=== PATIENT | male | born 1960 | race Caucasian/White ===

== ENCOUNTER → 2016-09-06 | Outpatient (CLI) | payer BC ==
[~2016-09-06] MED LIST: ALPR1TAB2 PO; AMLO5TAB2 PO; HYDR-3730 PO; LEVO175T5 PO; LEVO750T9 PO; OMEP20CA12 PO
--- OUTSIDE RECORDS SUMMARY | 2016-09-06 10:41 | XMS REPORT | Continuity of Care Document ---
Author Author [facility] Organization [facility] Address Unknown Phone Unavailable Allergies Active Description Code Type Severity Reaction Onset Reported/Identified Relationship to Patient Clinical Status Yes No Known Drug Allergies [id number] Drug Allergy Unknown N/ A 02/12/2016 Medications Problems Date Dx Coded Attending Type Code Diagnosis Diagnosed By 12/03/2014 LASHAE HOLM, PARADISE [place] Ot 724.2 12/13/2014 LASHAE HOLM, PARADISE [place] Ot 724.2 02/09/2016 LASHAE HOLM, [place]AD[place] Ot 724.2 LUMBAGO 02/10/2016 LASHAE HOLM, [place] Ot 724.2 LUMBAGO 02/12/2016 TWYLA VILLASENOR MD Ot Z01.818 ENCOUNTER FOR OTHER PREPROCEDURAL EXAMIN 02/12/2016 TWYLA VILLASENOR MD Ot Z86.010 PERSONAL HISTORY OF COLONIC POLYPS 02/13/2016 TWYLA VILLASENOR MD Ot Z01.818 ENCOUNTER FOR OTHER PREPROCEDURAL EXAMIN 02/13/2016 TWYLA VILLASENOR MD Ot Z86.010 PERSONAL HISTORY OF COLONIC POLYPS 02/16/2016 PARADISE BHARDWAJ MD Ot 724.2 LUMBAGO 02/16/2016 TWYLA VILLASENOR MD Ot K57.90 DVRTCLOS OF INTEST, PART UNSP, W/O PERF 02/16/2016 TWYLA VILLASENOR MD Ot Z09 ENCNTR FOR F/U EXAM AFT TRTMT FOR COND O 02/16/2016 TWYLA VILLASENOR MD Ot Z80.0 FAMILY HISTORY OF MALIGNANT NEOPLASM OF 02/16/2016 TWYLA VILLASENOR MD Ot Z86.010 PERSONAL HISTORY OF COLONIC POLYPS 02/17/2016 TWYLA VILLASENOR MD Ot K57.90 DVRTCLOS OF INTEST, PART UNSP, W/O PERF 02/17/2016 TWYLA VILLASENOR MD Ot Z09 ENCNTR FOR F/U EXAM AFT TRTMT FOR COND O 02/17/2016 JACKLYN HOLM, TWYLA Ryan Ot Z80.0 FAMILY HISTORY OF MALIGNANT NEOPLASM OF 02/17/2016 JACKLYN HOLM, TWYLA Ryan Ot Z86.010 PERSONAL HISTORY OF COLONIC POLYPS 08/30/2016 LASHAE HOLM, PARADISE [place] Ot 724.2 LUMBAGO Procedures Results Encounters ACCT No. Visit Date/Time Discharge Status Pt. Type Provider Facility Loc./Unit Complaint [id number] 02/16/2016 07:10:00 2015 09:55:00 DIS Outpatient TWYLA VILLASENOR MD [facility] HISTORY OF POLYPS [id number] 02/12/2016 05:57:00 2015 12:51:00 DIS Outpatient TWYLA VILLASENOR MD [facility] PREOP HISTORY OF POLYPS [id number] 11/27/2014 17:33:00 2014 23:59:59 CLS Outpatient LASHAE HOLM, [place] [facility] RAD LUMBAR PAIN
--- NOTE | 2016-09-06 12:53 | Diagnostic Imaging Report ---
INDICATION: Chronic low back pain. EXAMINATION: Lumbar spine. FINDINGS: AP and lateral views of the lumbar spine show a slight scoliotic curvature, convex to the left. The alignment is normal. There is disc space narrowing at T12-L1, L2-3, L3-4, and L4-5. There are moderate osteophytes forming at T11-12, L2-3, L3-4, and L4-5 as well. There are no compression fractures. IMPRESSION: Degenerative changes of the lower thoracic and mid lumbar spine as noted. No acute abnormality is seen. Dictated by: Dictated on workstation # [id number]
== END ==
LOC: RAD 10:37
PROVIDERS: ATTEND Family Medicine
DX: M54.5 Low back pain (principal)
CPT/HCPCS: 72100

== ENCOUNTER → 2016-09-11 | Outpatient (CLI) | payer BC ==
--- NOTE | 2016-09-11 08:36 | Diagnostic Imaging Report ---
PROCEDURE: MRI lumbar spine. TECHNIQUE: Multiplanar, multisequence MRI of the lumbar spine was performed without contrast. INDICATION: Back pain with radiculopathy. Cyst on tailbone which is causing some pain. There is normal height and alignment of the lumbar vertebral bodies. There is disc space narrowing and bulging of the disc and spondylosis at T12-L1 which is causing minimal foraminal narrowing but no focal nerve root impingement is seen. There is no central canal stenosis. L1-2 level shows no abnormality. At L2-3 there is disc space narrowing and bulging of disc with mild degenerated facets but no focal disc herniation or significant stenosis is seen. At L3-4 there is disc space narrowing and bulging of disc and spondylosis with degenerated facets resulting in mild bilateral lateral recess narrowing. At L4-5 there is disc space narrowing and diffuse bulging of disc and spondylosis with degenerated facets resulting in some bilateral lateral recess narrowing and mild central canal stenosis. L5-S1 shows mild degenerative disc and facet disease. Imaging of the sacrum and coccyx shows no abnormality. Sacroiliac joints appear normal. IMPRESSION: There is diffuse degenerative disc and facet disease present. This is causing some mild stenosis as described. Dictated by: Dictated on workstation # [id number]
== END ==
LOC: RAD 07:34
PROVIDERS: ATTEND Family Medicine
DX: M51.16 Intervertebral disc disorders with radiculopathy, lumbar region (principal); M48.06 Spinal stenosis, lumbar region
CPT/HCPCS: 72148

== ENCOUNTER 2016-10-26 05:35 | Outpatient (CLI) | payer BC ==
[~2016-10-26] VITALS: Ht 190.5 cm; Wt 104.3 kg
[~2016-10-26 05:35] MED LIST changes: -HYDR-3730 PO; -LEVO750T9 PO
[2016-10-28] MEDS ORDERED: HYDR-3730 PO (10:52)
[2016-10-28] MEDS ORDERED: LEVO750T9 PO (10:52)
== END 2016-10-26 14:39 ==
LOC: PREOP 05:35
PROVIDERS: ATTEND Surgery Pediatric Surgery
DX: Z01.818 Encounter for other preprocedural examination (principal); L05.91 Pilonidal cyst without abscess

== ENCOUNTER 2016-10-28 06:27 | Day surgery (SDC) | payer BC ==
[~2016-10-28] VITALS: Ht 190.5 cm; Wt 104.3 kg
[2016-10-28] MEDS ORDERED: ceFAZolin 1,000 MG (ANCEF) VIAL ONE (06:47)
[2016-10-28] MEDS ORDERED: NS (IVPB) 50 ML ONE (06:48)
[2016-10-28] MEDS ORDERED: MIDAZOLAM 2 MG/2 ML (VERSED) VIAL IV ONE (07:15)
[2016-10-28] MEDS ORDERED: FAMOTIDINE 20MG/2ML IV (PEPCID) IV ONE (07:15)
[2016-10-28] MEDS ORDERED: ceFAZolin 1 GM/NS 50 ML IVPB IV ONE ×2 (07:15)
[2016-10-28] MEDS: LACTATED RINGERS 1,000 ML IV PRN ×2 (07:32→10:17)
[2016-10-28 07:56] VITALS: BP 140/95
--- NOTE | 2016-10-28 08:13 | Progress Note-Pre Operative ---
Pre-Operative Progress Note H&P Reviewed The H&P was reviewed, patient examined and no changes noted. Date H&P Reviewed: October 28, 2016 Time H&P Reviewed: 08:00 Pre-Operative Diagnosis: symptomatic pilonidal cyst DENNIS GONZALEZ MD October 28, 2016 8:12 am
[2016-10-28] MEDS ORDERED: ONDANSETRON 4 MG/2 ML (SDV) Z0FRAN IVP PRN ×2 (08:15→11:15)
[2016-10-28] MEDS ORDERED: HYDROcodone/APAP 5 MG/325 MG (LORTAB) TAB PO ONE (08:15)
[2016-10-28] MEDS ORDERED: morphine INJ 10 MG/ML 1ML (SYR OR VIAL) IVP PRN (08:15)
[2016-10-28] MEDS ORDERED: ACETAMINOPHEN 325 MG TABLET/CAPLET (TYLENOL) PO PRN (08:15)
[2016-10-28] MEDS ORDERED: BUP/EPI 0.5% 1:200,000 (SENSORCAINE) 30 ML VIAL ONE (09:18)
[2016-10-28] MEDS ORDERED: LACTATED RINGERS 1,000 ML IV ONE ×2 (09:20→11:03)
[2016-10-28] MEDS ORDERED: LIDOCAINE PF 2% 10 ML (XYLOCAINE) AMP ONE (09:20)
[2016-10-28] MEDS ORDERED: proPOfol 200 MG/20 ML (DIPRIVAN) VIAL IV ONE (09:20)
[2016-10-28] MEDS ORDERED: ONDANSETRON 4 MG/2 ML (SDV) Z0FRAN ONE (09:20)
[2016-10-28] MEDS ORDERED: ROCURONIUM 50 MG/5 ML (ZEMURON) VIAL IV ONE (09:20)
[2016-10-28] MEDS ORDERED: fentaNYL INJECTION 250 MCG/5 ML AMP ONE (09:21)
[2016-10-28] MEDS ORDERED: SEVOFLURANE (ULTANE) 15 ML INHAL SOLN ONE ×6 (09:21→11:03)
[2016-10-28] MEDS ORDERED: MIDAZOLAM 2 MG/2 ML (VERSED) VIAL ONE (09:21)
--- NOTE | 2016-10-28 10:49 | Progress Note-Post Operative ---
Post-Operative Progess Note Surgeon (s)/Plastic Outfitter (s) Surgeon DENNIS GONZALEZ MD Plastic Outfitter: none Pre-Operative Diagnosis symptomatic pilonidal cyst Post-Operative Diagnosis same Procedure & Operative Findings Date of Procedure 10/28/16 Procedure Preformed/Findings pilonidal cystectomy with intermediate flap closure Anesthesia Type GET Estimated Blood Loss Estimated blood loss (mL): minimal Specimens/Packing Specimens Removed pilonidal cyst Packing: none DENNIS GONZALEZ MD October 28, 2016 10:49 am
[2016-10-28] MEDS ORDERED: LEVO750T9 PO (10:52)
[2016-10-28] MEDS ORDERED: HYDR-3730 PO (10:52)
--- NOTE | 2016-10-28 10:54 | Discharge Inst-Surgical ---
D/C Lap Instructions-LISA New, Converted, or Re-Newed RX: RX on Chart Follow Up Appt in 2 weeks Activity as tolerated No driving for 24 hours No driving while on pain medications Incentive Spirometry use every 2 hours while awake Regular Diet Symptoms to Report: Fever over 101 degree F, Nausea/Vomiting Infection Signs and Symptoms to report: Increased redness, Foul odor of wound, Increased drainage Bathing instructions: May shower Operative Area Clean/Dry; Keep incision clean/dry If any problems/questions: Contact your physician or go to Emergency Room DENNIS GONZALEZ MD October 28, 2016 10:53 am
[2016-10-28] MEDS ORDERED: morphine INJ 10 MG/ML 1ML (SYR OR VIAL) ONE (11:08)
[2016-10-28] MEDS: morphine INJ 10 MG/ML 1ML (SYR OR VIAL) IVP PRN ×3 (11:13→11:40)
[2016-10-28] MEDS ORDERED: HYDROmorphone (DILAUDID) 2 MG/ML VIAL IVP PRN (11:15)
--- NOTE | 2016-10-28 11:54 | OPERATIVE REPORT ---
DATE OF SERVICE: 10/28/2016 DATE OF PROCEDURE: 10/28/2016. ATTENDING PRIMARY CARE PHYSICIAN: PREOPERATIVE DIAGNOSIS: Persistent symptomatic pilonidal cyst. POSTOPERATIVE DIAGNOSIS: Persistent symptomatic pilonidal cyst. PROCEDURE: Pilonidal cystectomy with intermediate flap closure, approximately 6 cm in size. SURGEON: Dr. Gonzalez. ANESTHESIA: General endotracheal. ESTIMATED BLOOD LOSS: Minimal. FINDINGS: Chronic pilonidal cyst with no active abscess identified. There were two open sinuses. DISPOSITION: The patient tolerated the procedure well. The patient is a 55-year-old male with pain and drainage in the upper gluteal cleft around the sacral region for years. He reports that in the past several years this has become more symptomatic with episodes of flareups and drainage as well as pain. He reports that both his mother and father also had a pilonidal cysts and had to have them removed. Upon examination, he was found to have two sinus tracts as well as an area of hardness consistent with a chronic pilonidal cyst. DESCRIPTION OF PROCEDURE: The patient was brought to the operating room, laid supine on the table. After adequate IV pain and sedative medications and general endotracheal intubation, the patient was then placed prone and the buttocks spread laterally. The back, buttocks and perineum were then prepped and draped in standard surgical fashion. The sinus tracts were then probed which did lead to just overlying the sacral bone. We then marked off the skin encompassing these sinus tracts which was approximately 6 cm in size. This area was then anesthetized using 0.5% Marcaine with epinephrine. A skin incision encompassing the sinus tracts was then made in an elliptical shape using a 15 blade. We then proceed with a wide excision of the subcutaneous fat following the lacrimal probe as a guide, which ended up just overlying the sacrum. This was then fully excised using electrocautery with visualization of good hemostasis. The specimen was sent to pathology. We then proceeded with flap closure. We proceeded to create subcutaneous flaps bilaterally using electrocautery to cover the sacrum. The subcutaneous flaps were then reapproximated using 2-0 Vicryl interrupted sutures. The tape on the buttocks was then removed and the subcutaneous tissue was then reapproximated using 2-0 Vicryl interrupted sutures. The skin was then closed using interrupted simple 3-0 nylon sutures. The wound was then cleaned and covered with gauze followed by an ABD pad. The patient tolerated the procedure well. We will start IV and oral pain medication as well as a clear liquid diet. Once he is tolerating clears and has good pain control with oral pain medication and is ambulating well, we will discharge him home. He will be instructed to keep the area clean, dry with gauze dressing on a b.i.d. basis as well as p.r.n. We will also proceed with Levaquin 750 mg daily for 2 weeks. He is also instructed to avoid any heavy lifting or exertion for the next two weeks as well. Job ID: [id number] DocumentID: [id number] Dictated Date: 10/28/2016 11:03:05 Professor Of Pathology Date: 10/28/2016 11:54:01 Dictated By: DENNIS GONZALEZ MD
[2016-10-28 12:10] VITALS: BP 126/71
[2016-10-28] MEDS ORDERED: HYDROcodone/APAP 5 MG/325 MG (LORTAB) TAB ONE (12:14)
[2016-10-28 12:40] VITALS: BP 109/67
[2016-10-28 13:09] VITALS: BP 118/89
== END 2016-10-28 13:30 | disposition home or self-care (01) ==
LOC: SDC 06:27
PROVIDERS: ATTEND Surgery Pediatric Surgery
DX: L05.91 Pilonidal cyst without abscess (principal); Z11.2 Encounter for screening for other bacterial diseases; K21.9 Gastro-esophageal reflux disease without esophagitis; I10 Essential (primary) hypertension; E03.9 Hypothyroidism, unspecified; Z79.899 Other long term (current) drug therapy; Z87.891 Personal history of nicotine dependence
CPT/HCPCS: 87081

== ENCOUNTER → 2020-06-25 | Outpatient (CLI) | payer BC, OTHER ==
[~2020-06-25] MED LIST changes: +AMLO-250 PO; -AMLO5TAB2 PO; +HYDR-3730 PO; +LEVO750T9 PO; -OMEP20CA12 PO; +OMEP20CA18 PO
--- NOTE | 2020-06-25 09:43 | Diagnostic Imaging Report ---
PROCEDURE: US Gallbladder. TECHNIQUE: Multiple real-time grayscale images were obtained over the right upper quadrant in various projections. INDICATION: Abdominal pain and bloating Liver parenchyma is homogeneous. Echogenicity appears mildly increased suggesting some fatty infiltration. Portal vein is patent with hepatopetal flow. Gallbladder is clear with no stones or wall thickening. The common duct is not dilated. Pancreas is obscured by bowel gas. IVC is patent. Aorta is obscured by bowel gas. Right kidney measures 12.1 cm in length and appears normal. There is no ascites. IMPRESSION: Mild hepatic steatosis Dictated by: Dictated on workstation # [id number]
== END ==
LOC: RAD 07:45
PROVIDERS: ATTEND Family Medicine
DX: K76.0 Fatty (change of) liver, not elsewhere classified (principal)
CPT/HCPCS: 76705

== ENCOUNTER → 2020-07-03 | Outpatient (CLI) | payer OTHER ==
[~2020-07-03] MED LIST changes: +CATHETER FLUSH 10 ML SYR IV PRN; +HYDR-3817 PO; +LEVO200T62 PO
--- NOTE | 2020-07-03 15:47 | Diagnostic Imaging Report ---
INDICATION: Abdominal pain. EXAMINATION: Hepatobiliary scan with ejection fraction. This study was performed following administration of 5.4 mCi of Choletec. 8 oz. of Ensure was also used to calculate the ejection fraction. COMPARISON: There are no prior nuclear medicine studies available for comparison. The gallbladder ultrasound exam of 06/25/2020 failed to show any sign of cholelithiasis or acute cholecystitis. On this study, there is uptake of the radiotracer by the gallbladder for 30 minutes. This would weigh against the diagnosis of acute cholecystitis. There is also extension of the radiotracer into the small bowel indicating the common bile duct is not obstructed. However, the ejection fraction is only 10.9% (normal greater than 35%). The reason for the diminished ejection fraction is not certain. IMPRESSION: 1. There is no evidence for acute cholecystitis or for an obstruction of the common bile duct. 2. However, the ejection fraction is only 10.9% and below normal limits. Dictated by: Dictated on workstation # [id number]
== END ==
LOC: CARD 13:00
PROVIDERS: ATTEND Surgery
DX: R10.11 Right upper quadrant pain (principal); R11.2 Nausea with vomiting, unspecified
CPT/HCPCS: 78227; A9537

== ENCOUNTER 2020-07-07 05:51 | Outpatient (RCR) | payer OTHER ==
[~2020-07-07] VITALS: Ht 190.5 cm; Wt 86.4 kg
[~2020-07-07 05:51] MED LIST changes: -CATHETER FLUSH 10 ML SYR IV PRN; -HYDR-3817 PO; -LEVO200T62 PO
[2020-07-07] MEDS ORDERED: HYDR-3817 PO (10:58)
[2020-07-07] MEDS ORDERED: LEVO200T62 PO (10:58)
== END 2020-07-07 11:43 | disposition home or self-care (01) ==
LOC: PREOP 05:51
PROVIDERS: ATTEND Surgery
DX: Z01.818 Encounter for other preprocedural examination (principal); K82.8 Other specified diseases of gallbladder

== ENCOUNTER 2020-07-10 12:06 | Day surgery (SDC) | payer OTHER ==
[~2020-07-10] VITALS: Ht 190.5 cm; Wt 86.4 kg
[2020-07-10] VITALS (10 sets, daily range): BP systolic 129–160; BP diastolic 77–91
[~2020-07-10 12:06] MED LIST changes: +HYDR-3817 PO; +LEVO200T62 PO
[2020-07-10] MEDS ORDERED: ceFAZolin 2 GM IV Premixed 50 ML IV ONE (12:15)
[2020-07-10] MEDS ORDERED: LIDOCAINE/EPI 1%-1:100,000 (XYLOCAINE) 50 ML ONE (12:20)
[2020-07-10] MEDS: LACTATED RINGERS 1,000 ML IV PRN ×2 (12:32→15:18)
--- NOTE | 2020-07-10 12:40 | Progress Note-Pre Operative ---
Pre-Operative Progress Note H&P Reviewed The H&P was reviewed, patient examined and no changes noted. Date Seen by Provider: Jul 10, 2020 Time Seen by Provider: 12:00 Date H&P Reviewed: Jul 10, 2020 Time H&P Reviewed: 12:00 Pre-Operative Diagnosis: symptomatic biliary dyskinesia DENNIS GONZALEZ MD Jul 10, 2020 12:40
[2020-07-10] MEDS ORDERED: HYDR-3817 PO (12:42)
--- NOTE | 2020-07-10 12:43 | Discharge Inst-Surgical ---
D/C Lap Instructions-LISA New, Converted, or Re-Newed RX: RX on Chart Follow Up Appt in 2 weeks Activity as tolerated No driving for 24 hours No driving while on pain medications Incentive Spirometry use every 2 hours while awake Regular Diet Symptoms to Report: Fever over 101 degree F, Nausea/Vomiting Infection Signs and Symptoms to report: Increased redness, Foul odor of wound, Increased drainage Bathing instructions: May shower Operative Area Clean/Dry; Keep incision clean/dry If any problems/questions: Contact your physician or go to Emergency Room DENNIS GONZALEZ MD Jul 10, 2020 12:43
[2020-07-10] MEDS ORDERED: morphine INJ 10 MG/ML 1ML (SYR OR VIAL) IVP PRN ×2 (12:45)
[2020-07-10] MEDS ORDERED: ONDANSETRON 4 MG/2 ML (SDV) Z0FRAN IVP PRN ×2 (12:45→16:00)
[2020-07-10] MEDS ORDERED: ACETAMINOPHEN 325 MG TABLET PO PRN (12:45)
[2020-07-10] MEDS ORDERED: fentaNYL INJECTION 100 MCG/2 ML AMP ONE (13:12)
[2020-07-10] MEDS ORDERED: ONDANSETRON 4 MG/2 ML (SDV) Z0FRAN ONE (13:12)
[2020-07-10] MEDS ORDERED: ROCURONIUM 10 MG/ML 5 ML SYRINGE IV ONE (13:12)
[2020-07-10] MEDS ORDERED: SEVOFLURANE (ULTANE) 15 ML INHAL SOLN ONE ×2 (13:12→15:28)
[2020-07-10] MEDS ORDERED: proPOfol 200 MG/20 ML (DIPRIVAN) VIAL IV ONE (13:12)
[2020-07-10] MEDS ORDERED: GLYCOPYRROLATE 0.2 MG/ML (ROBINUL) 2 ML VIAL ONE (13:12)
[2020-07-10] MEDS ORDERED: LIDOCAINE PF 2% 5 ML (XYLOCAINE) VIAL ONE (13:12)
[2020-07-10] MEDS ORDERED: MIDAZOLAM 2 MG/2 ML (VERSED) VIAL ONE (13:12)
[2020-07-10] MEDS ORDERED: NEOSTIGMINE 3 MG/3 ML VIAL ONE (13:12)
--- NOTE | 2020-07-10 15:37 | Progress Note-Post Operative ---
Post-Operative Progess Note Surgeon (s)/Lump Roller (s) Surgeon DENNIS GONZALEZ MD Lump Roller: dolores pham RN LABOR DELIVERY Pre-Operative Diagnosis symptomatic biliary dyskinesia Post-Operative Diagnosis same Procedure & Operative Findings Date of Procedure 07/10/20 Procedure Performed/Findings laparoscopic cholecystectomy Anesthesia Type get Estimated Blood Loss Estimated blood loss (mL): minimal Specimens/Packing Specimens Removed gallbladder DENNIS GONZALEZ MD Jul 10, 2020 15:37
[2020-07-10] MEDS ORDERED: HYDROmorphone 2 MG/ML VIAL (DILAUDID) ONE (15:47)
--- NOTE | 2020-07-10 15:49 | Anesthesia-General Post-Op ---
General Patient Condition Mental Status/LOC: Same as Preop Cardiovascular: Satisfactory Nausea/Vomiting: Absent Respiratory: Satisfactory Pain: Controlled Complications: Absent Post Op Complications Complications None Follow Up Care/Instructions Patient Instructions None needed. Anesthesia/Patient Condition Patient Condition Patient is doing well, no complaints, stable vital signs, no apparent adverse anesthesia problems. No complications reported per nursing. TWAN REYNOLDS CRNA Jul 10, 2020 15:49
[2020-07-10] MEDS ORDERED: PROMETHAZINE INJ 25 MG/ML (PHENERGAN) AMP ONE (15:57)
[2020-07-10] MEDS ORDERED: HYDROmorphone 2 MG/ML VIAL (DILAUDID) IV ONE (16:00)
[2020-07-10] MEDS ORDERED: morphine INJ 10 MG/ML 1ML (SYR OR VIAL) IVP ONE (16:00)
[2020-07-10] MEDS ORDERED: PROMETHAZINE INJ 25 MG/ML (PHENERGAN) AMP IVP ONE (16:15)
[2020-07-10] MEDS: oxyCODONE/APAP 5/325MG (PERCOCET 5) TABLET PO PRN ×2 (16:55→17:36)
--- NOTE | 2020-07-10 20:19 | OPERATIVE REPORT ---
DATE OF SERVICE: 07/10/2020 ATTENDING PRIMARY CARE PHYSICIAN: Dr. Andrei García. PREOPERATIVE DIAGNOSIS: Symptomatic biliary dyskinesia. POSTOPERATIVE DIAGNOSIS: Symptomatic biliary dyskinesia. PROCEDURE: Laparoscopic cholecystectomy. SURGEON: Dennis Gonzalez MD ANESTHESIA: General endotracheal. ESTIMATED BLOOD LOSS: Minimal. FINDINGS: Distended gallbladder, no gallbladder wall thickening. Mild liver steatosis. DISPOSITION: The patient tolerated the procedure well. INDICATIONS: The patient is a 59-year-old male who began diet and exercising some time ago. We had removed a complex pilonidal cyst in 2017 and at that time, he had decided on proceeding with a diet and exercise regimen. He has lost a significant amount of weight; however, he then developed abdominal bloating and nausea as well as right upper abdominal quadrant pain following meals. This caused him to inadvertently lose approximately 10 more pounds. An ultrasound was performed, which did not show any gallstones; however, HIDA scan was performed, which did show a low ejection fraction of 10% with severe reproduction of symptoms upon administration of Kinevac analogue consistent with a biliary dyskinesia. DESCRIPTION OF PROCEDURE: The patient was brought to the operating room, laid supine on the table. After adequate IV pain and sedative medications and general endotracheal intubation, the abdomen was prepped and draped in standard surgical fashion. A 0.5% Marcaine with epinephrine was used to anesthetize overlying skin in the left upper abdominal quadrant and a transverse skin incision made using 15 blade. An 0 silk suture was applied to the medial aspect of incision for retraction and Veress needle inserted with a low opening pressure of 0 mmHg and the abdomen was then insufflated to 15 mmHg pressure. The Veress needle removed and a 5 mm XL trocar placed followed by a 5 mm 45-degree angle laparoscope visualizing the peritoneal cavity. A 4-quadrant abdominal exploration was performed. There was mild to moderate liver steatosis. There was a distended gallbladder, no gallbladder wall thickening. Under direct visualization, we then proceeded to place a supraumbilical 10 mm port after the skin and peritoneal lining were anesthetized using 0.5% Marcaine with epinephrine and a transverse skin incision made using a 15 blade. In a similar fashion, a right upper abdominal quadrant 5 mm port was placed. The patient was then placed in reverse Trendelenburg position as well as plane right side up, left side down and the fundus of the gallbladder was then retracted anteriorly and superiorly. The hepatoduodenal ligament was then opened using blunt dissection as well as electrocautery on the hook instrument. The entire critical view of safety was identified including the triangle of Calot as well as the cystic duct and artery as the only two structures going into the gallbladder as well as the cystic plate behind the proximal gallbladder. A timeout was then taken and the cystic duct and artery were then clipped proximally, distally and cut with EndoShears. The gallbladder was then dissected off the liver bed using cautery on hook instrument with visualization of good hemostasis as well as no leaking ducts of Luschka. The gallbladder was removed through the 10 mm port site using an EndoCatch bag. The 10 mm port site fascia and peritoneum were then closed under direct visualization using a Zach-Chelsea device and 0 Vicryl suture. The abdomen was desufflated and the remaining ports removed. All skin incisions were closed using 4-0 Monocryl running subcuticular sutures. Wounds were then cleaned and covered with Dermabond. The patient tolerated the procedure well. We will start IV normal pain medication as well as a clear liquid diet. Once he is tolerating clears, has good pain control with oral pain medications, ambulating well, we will discharge him home. Job ID: [id number] DocumentID: [id number] Dictated Date: 07/10/2020 15:46:27 Training And Development Project Leader Date: 07/10/2020 20:18:47 Dictated By: DENNIS GONZALEZ MD
== END 2020-07-10 17:56 | disposition home or self-care (01) ==
LOC: SDC 12:06
PROVIDERS: ATTEND Surgery
DX: K81.1 Chronic cholecystitis (principal); K82.8 Other specified diseases of gallbladder; I10 Essential (primary) hypertension; K21.9 Gastro-esophageal reflux disease without esophagitis; E03.9 Hypothyroidism, unspecified; G89.29 Other chronic pain; Z79.899 Other long term (current) drug therapy; Z80.0 Family history of malignant neoplasm of digestive organs; Z80.3 Family history of malignant neoplasm of breast; Z80.42 Family history of malignant neoplasm of prostate
CPT/HCPCS: 87081

== ENCOUNTER 2021-05-26 09:19 | Outpatient (CLI) | payer OTHER ==
[~2021-05-26] VITALS: Ht 190.5 cm; Wt 91.6 kg
== END 2021-05-26 09:55 | disposition home or self-care (01) ==
LOC: PREOP 09:19
PROVIDERS: ATTEND Surgery
DX: Z01.818 Encounter for other preprocedural examination (principal)

== ENCOUNTER 2021-05-27 12:42 | Day surgery (SDC) | payer OTHER ==
[~2021-05-27] VITALS: Ht 190.5 cm; Wt 91.6 kg
[2021-05-27] MEDS ORDERED: NS IV 500 ML 500 ML ONE (12:47)
[2021-05-27 13:00] VITALS: BP 141/99
[2021-05-27] MEDS ORDERED: fentaNYL INJ 100 MCG/2 ML AMP IVP ONE (13:00)
[2021-05-27] MEDS ORDERED: MIDAZOLAM 5 MG/5 ML (VERSED) VIAL IV ONE (13:00)
[2021-05-27] MEDS ORDERED: LIDOCAINE JELLY 2% 6 ML SYRINGE MM PRN (13:00)
[2021-05-27] MEDS ORDERED: NS IV 500 ML 500 ML IV PRN (13:00)
--- NOTE | 2021-05-27 13:18 | Conscious Sedation/ASA ---
Conscious Sedation Pre-Proced Time 13:00 ASA Score 2 �For ASA 3 and 4: Consider anesthesia and medical clearance.� Also, for patients with a history of failed moderate sedation consider anesthesia.� Airway Lungs Heart ASA score ASA 1: a normal healthy patient ASA 2: a patient with a mild systemic disease (mid diabetes, controlled hypertension, obesity ASA 3: a patient with a severe systemic disease that limits activity (angina, COPD, prior Myocardial infarction) ASA 4: a patient with an incapacitating disease that is a constant threat to life (CHF, renal failure) ASA 5: a moribund patient not expected to survive 24 hrs. (ruptured aneurysm) ASA 6: a declared brain- patient whose organs are being harvested. For emergent operations, add the letter E after the classification Mallampati Classification Grade 2 Sedation Plan Analgesia, Amnesia, Plan communicated to team members, Discussed options with patient/fam, Discussed risks with patient/fam The patient is an appropriate candidate to undergo the planned procedure, sedation, and anesthesia. The patient immediately re-assessed prior to indication. DENNIS GONZALEZ MD May 27, 2021 13:18
--- NOTE | 2021-05-27 13:18 | Progress Note-Pre Operative ---
Pre-Operative Progress Note H&P Reviewed The H&P was reviewed, patient examined and no changes noted. Date Seen by Provider: May 27, 2021 Time Seen by Provider: 13:00 Date H&P Reviewed: May 27, 2021 Time H&P Reviewed: 13:00 Pre-Operative Diagnosis: screening DENNIS Flaherty MD May 27, 2021 13:18
--- NOTE | 2021-05-27 13:19 | Discharge Inst-Surgical ---
D/C Lap Instructions-LISA Follow Up Activity as tolerated High Fiber Diet 25g or more per day Avoid Alcohol, Caffeine, Spicy [place] and Acid foods. Drink 64 fluid oz or more of fluids per day. Symptoms to Report: Fever over 101 degree F, Nausea/Vomiting If any problems/questions: Contact your physician or go to Emergency Room DENNIS GONZALEZ MD May 27, 2021 13:19
[2021-05-27] MEDS ORDERED: ONDANSETRON 4 MG/2 ML (SDV) Z0FRAN IVP PRN (13:30)
[2021-05-27] MEDS ORDERED: ONDANSETRON 4 MG (ZOFRAN) ORAL DISSOLVE TAB PO PRN (13:30)
[2021-05-27 14:43] VITALS: BP 131/80
[2021-05-27 14:48] VITALS: BP 112/71
[2021-05-27 14:51] VITALS: BP 120/76
[2021-05-27 14:56] VITALS: BP 117/75
--- NOTE | 2021-05-27 15:00 | Progress Note-Post Operative ---
Post-Operative Progess Note Surgeon (s)/Manager Transport (s) Surgeon DENNIS GONZLAEZ MD Manager Transport: none Pre-Operative Diagnosis screening colo Post-Operative Diagnosis mild chronic stage 2 ext and int hemorrhoids, mild-mod sigmoid diverticulosis. Procedure & Operative Findings Date of Procedure 05/27/21 Procedure Performed/Findings colonoscopy Anesthesia Type cs Estimated Blood Loss Estimated blood loss (mL): minimal Specimens/Packing Specimens Removed none DENNIS GONZALEZ MD May 27, 2021 14:59
[2021-05-27 15:34] VITALS: BP 132/98
--- NOTE | 2021-05-28 01:30 | OPERATIVE REPORT ---
DATE OF SERVICE: 05/27/2021 ATTENDING PRIMARY CARE PHYSICIAN: Andrei García MD PREOPERATIVE DIAGNOSIS: Screening colonoscopy with a history of colon polyps. POSTOPERATIVE DIAGNOSES: Chronic stage II external and internal hemorrhoids, mild to moderate sigmoid diverticulosis. PROCEDURE: Colonoscopy. SURGEON: Dennis Gonzalez MD ANESTHESIA: Conscious sedation. ESTIMATED BLOOD LOSS: Minimal. FINDINGS: Chronic stage II external and internal hemorrhoids, mild to moderate sigmoid diverticulosis. DISPOSITION: The patient tolerated the procedure well. INDICATIONS: The patient is a 60-year-old male referred over to us for a screening colonoscopy. He states that his last colonoscopy was approximately 5 years ago and he does remember having polyps identified. He states that no major issues with diarrhea, no constipation as well as no red blood per rectum nor any dark tarry stools. He also does not report any family history of colon cancer. DESCRIPTION OF PROCEDURE: The patient was brought to the endoscopy suite, laid in the left lateral decubitus position. After adequate IV pain and sedative medications and conscious sedation anesthesia, a digital rectal examination was performed. Stage II chronic external and internal hemorrhoids were identified, which were not actively edematous nor inflamed and no bleeding. Normal sphincter tone was felt and there were no palpable masses. Prostate gland was palpable and appeared normal. The endoscope was then intubated and the anus and rectum gently insufflated. The endoscope was then advanced to the valves of Mckee of the rectum with no polyps or any neoplasms identified. We then proceeded through the sigmoid colon where mild to moderate sigmoid diverticulosis identified. The endoscope was then advanced to the remainder of the descending, transverse, ascending colon, and cecum, which were normal. There were no polyps or any neoplasms identified throughout the colon or rectum. The endoscope was then slowly withdrawn while taking a second look and suctioning of residual air with no additional findings. The patient tolerated the procedure well. We will recommend the necessary lifestyle and dietary accommodation including incorporation of a fiber supplement, which should equal or exceed 30 grams daily as well as significant amounts of water to promote soft stools on a daily basis. If he continues to be symptomatic, he does not need another colonoscopy for another 10 years. Job ID: [id number] DocumentID: [id number] Dictated Date: 05/27/2021 15:07:50 Stock Dealer Date: 05/28/2021 01:29:07 Dictated By: DENNIS GONZALEZ MD
== END 2021-05-27 15:36 | disposition home or self-care (01) ==
LOC: ENDO 12:42
PROVIDERS: ATTEND Surgery
DX: Z12.11 Encounter for screening for malignant neoplasm of colon (principal); K64.1 Second degree hemorrhoids; K57.30 Diverticulosis of large intestine without perforation or abscess without bleeding; K64.4 Residual hemorrhoidal skin tags; Z86.010 Personal history of colon polyps; I10 Essential (primary) hypertension; E03.9 Hypothyroidism, unspecified; K21.9 Gastro-esophageal reflux disease without esophagitis; Z87.891 Personal history of nicotine dependence; Z79.890 Hormone replacement therapy; Z79.899 Other long term (current) drug therapy; Z80.0 Family history of malignant neoplasm of digestive organs; Z80.49 Family history of malignant neoplasm of other genital organs; Z80.3 Family history of malignant neoplasm of breast